=== PATIENT | female | born 1970 ===

== ENCOUNTER 2021-01-05 02:44 | Emergency (ER) | payer MEDICAID ==
[2021-01-05 03:00] VITALS: BP 141/71
[2021-01-05] MEDS ORDERED: ASPIRIN 81 MG TAB CHEW PO ONE (03:21)
--- NOTE | 2021-01-05 03:23 | Event Note ---
ED Screening Note Date of service: 01/05/21 Time: 03: ED Screening Note: 50-year-old female patient with history of BMI > 49, tobacco use, hypertension, and prior AK presents to the emergency department with complaints of left-sided chest pain radiating to the left side of her back with associated shortness of breath and generalized weakness starting today. Patient states current symptoms are less severe than her prior AK 6 months ago. Patient states she "is just not feeling right." General: Awake, appropriately interactive, no acute distress. Neck: Supple. Full range of motion intact. Cardiovascular: Normal peripheral perfusion. Pulmonary: No respiratory distress. Patient is speaking normally without use of accessory muscles. Skin: No apparent rashes or lesions. Neurological: No facial asymmetry. Speech is clear. Follows commands. Patient is alert and oriented. Musculoskeletal: Moves all four extremities spontaneously with normal range of motion. Psych: Cooperative. Appropriate mood and affect. EKG, labs, chest x-ray, aspirin ordered. director informatics requested. I have greeted and performed a focused rapid initial assessment of this patient. A comprehensive ED assessment and evaluation of the patient, analysis of all test results, and completion of the medical decision-making process will be conducted by additional ED providers. This initial assessment/diagnostic orders/clinical plan/treatment(s) is/are subject to change based on patients health status, clinical progression and re-assessment. Further treatment and workup at subsequent clinical provider's discretion. Patient/guardian urged not to elope from the ED as their condition may be serious if not clinically assessed and managed.
[2021-01-05 04:12] LABS: Basophils # (Auto) 0.1 K/mm3 (0.0-0.1); Basophils % (Auto) 0.8 % (0.0-1.8); Eosinophils # (Auto) 0.2 K/mm3 (0.0-0.4); Eosinophils % (Auto) 1.8 % (0.0-4.3); Hematocrit 42.1 % (30.3-42.9); Hemoglobin 14.6 gm/dl (10.1-14.3); Lymphocytes # (Auto) 2.5 K/mm3 (1.2-5.4); Lymphocytes % (Auto) 21.9 % (13.4-35.0); Mean Corpuscular HGB Conc 35 % (30-34); Mean Corpuscular Volume 86 fl (79-97); Monocytes # (Auto) 0.9 K/mm3 (0.0-0.8); Monocytes % (Auto) 8.1 % (0.0-7.3); Platelet Count 204 K/mm3 (140-440); Red Blood Count 4.88 M/mm3 (3.65-5.03); Red Cell Distribution Width 16.8 % (13.2-15.2)
[2021-01-05 04:27] LABS: INR 0.89 (0.87-1.13)
[2021-01-05 04:28] LABS: Partial Thromboplastin Time 27.7 Sec. (24.2-36.6)
[2021-01-05 04:33] LABS: Alanine Aminotransferase 20 units/L (7-56); Albumin 4.2 g/dL (3.9-5); Blood Urea Nitrogen 8 mg/dL (7-17); Calcium 9.1 mg/dL (8.4-10.2); Hemolysis Index 14
[2021-01-05 05:01] LABS: BUN/Creatinine Ratio 13
--- NOTE | 2021-01-05 05:40 | XRay Report ---
CHEST 2 VIEWS INDICATION / CLINICAL INFORMATION: chest pain. COMPARISON: None available. FINDINGS: SUPPORT DEVICES: None. HEART / MEDIASTINUM: No significant abnormality. LUNGS / PLEURA: No significant pulmonary or pleural abnormality. No pneumothorax. ADDITIONAL FINDINGS: No significant additional findings. IMPRESSION: 1. No acute findings. Signer Name: Trey Patel MD Signed: 01/05/2021 5:36 AM Workstation Name: [id number]
--- NOTE | 2021-01-07 10:52 | Electrocardiograph Report ---
[facility] Test Date: 2021-01-05 Test Time: 02:49:33 Pat Name: CORRINA MAGUIRE Department: Room: Gender: F Sem Manager: KYLER : 1970 Requested By: AYDEN BLAS Order Number: [id number] Reading MD: Matthew Retneria Measurements Intervals [place] Rate: 61 P: 45 TN: 144 QRS: 55 QRSD: 99 T: 35 QT: 423 QTc: 425 Interpretive Statements Sinus rhythm No previous ECG available for comparison Electronically Signed On 01-07-2021 10:51:58 EDT by Matthew Renteria
== END 2021-01-05 06:10 | disposition left against medical advice (07) ==
LOC: ED 02:44
DX: R07.9 Chest pain, unspecified (principal); Z53.21 Procedure and treatment not carried out due to patient leaving prior to being seen by health care provider
CPT/HCPCS: 36415; 71046; 80053; 83735; 84484; 84703; 85025; 85610; 85730; 93005

== ENCOUNTER 2021-11-07 10:02 | Emergency (ER) | payer MEDICAID ==
--- NOTE | 2021-11-07 11:23 | XRay Report ---
CHEST 2 VIEWS INDICATION / CLINICAL INFORMATION: Chest Pain. COMPARISON: None available. FINDINGS: SUPPORT DEVICES: None. HEART / MEDIASTINUM: No significant abnormality. LUNGS / PLEURA: No significant pulmonary or pleural abnormality. No pneumothorax. ADDITIONAL FINDINGS: No significant additional findings. IMPRESSION: 1. No acute findings. Signer Name: Brian Pichardo Jr, MD Signed: 11/07/2021 11:18 AM Workstation Name: [id number]
[2021-11-07 12:02] LABS: Basophils # (Auto) 0.1 K/mm3 (0.0-0.1); Basophils % (Auto) 0.7 % (0.0-1.8); Eosinophils # (Auto) 0.2 K/mm3 (0.0-0.4); Eosinophils % (Auto) 1.8 % (0.0-4.3); Hematocrit 45.6 % (30.3-42.9); Hemoglobin 15.5 gm/dl (10.1-14.3); Mean Corpuscular HGB Conc 34 % (30-34); Mean Corpuscular Volume 93 fl (79-97); Monocytes # (Auto) 0.8 K/mm3 (0.0-0.8); Platelet Count 195 K/mm3 (140-440); Red Blood Count 4.89 M/mm3 (3.65-5.03); Red Cell Distribution Width 14.1 % (13.2-15.2)
[2021-11-07 12:23] LABS: Alanine Aminotransferase 21 units/L (7-56); Albumin 3.9 g/dL (3.9-5); Blood Urea Nitrogen 7 mg/dL (7-17); Calcium 8.8 mg/dL (8.4-10.2); Hemolysis Index 15
[2021-11-07 12:28] LABS: INR 0.91 (0.87-1.13)
[2021-11-07 12:29] LABS: Partial Thromboplastin Time 29.1 Sec. (24.2-36.6)
[2021-11-07 12:31] LABS: BUN/Creatinine Ratio 12
[2021-11-07] MEDS ORDERED: ASPIRIN EC 325 MG TAB PO ONE (14:07)
[2021-11-07] MEDS ORDERED: amLODIPine 5 MG TAB PO ONE (14:07)
--- NOTE | 2021-11-07 14:13 | Emergency Department Report ---
ED Chest Pain HPI - General Chief Complaint: Chest Pain Stated Complaint: CHEST PAIN Time Seen by Provider: 11/07/21 13:36 Source: patient Mode of arrival: Ambulatory Limitations: No Limitations - History of Present Illness Initial Comments: This is a 51-year-old With a history of bronchitis and hypertension who presents to the emergency department with chest pressure across her entire chest since 3 AM this morning. This chest pain was followed by left-sided headache which radiates down her left upper back. Patient denies palpitations, shortness of breath, cough, fever. Patient does report bilateral upper and lower extremity edema. Patient denies previous similar chest pain. Patient also reports that noncompliant with her antihypertensives which include metoprolol and Norvasc. Denies any known aggravating or alleviating factors. Severity scale (0 -10): 4 - Related Data Previous Rx's Medication Instructions Recorded Last Taken Type Amoxicillin [Amoxicillin TAB] 875 mg PO BID 7 Days 11/07/21 Unknown Rx HYDROcodone/Acetaminop 7.5-325 7.5 mg PO Q6HR PRN #12 11/07/21 Unknown Rx [[place]] Metoprolol [Lopressor TAB] 25 mg PO BID #30 tablet 11/07/21 Unknown Rx amLODIPine 5 mg PO DAILY #30 tab 11/07/21 Unknown Rx Allergies Allergy/AdvReac Type Severity Reaction Status Date / Time erythromycin base AdvReac Hives Verified 11/07/21 10:24 Heart Score - HEART Score History: Moderately suspicious EKG: Non-specific Age: 45-65 Risk factors: 1-2 risk factors Troponin: < normal limit HEART Score: 4 - EKG Read Time Time EKG Completed: 10:22 EKG Read Time: 10:22 ED Review of Systems ROS: Stated complaint: CHEST PAIN Other details as noted in HPI Comment: All other systems reviewed and negative Constitutional: denies: chills, fever Eyes: denies: eye pain, eye discharge, vision change ENT: denies: ear pain, throat pain Respiratory: no symptoms reported. denies: cough, shortness of breath, wheezing Cardiovascular: chest pain, edema. denies: palpitations Endocrine: no symptoms reported Gastrointestinal: denies: abdominal pain, nausea, diarrhea Genitourinary: denies: urgency, dysuria, discharge Musculoskeletal: back pain. denies: joint swelling, arthralgia Skin: denies: rash, lesions Neurological: headache. denies: weakness, paresthesias Psychiatric: anxiety. denies: depression Hematological/Lymphatic: denies: easy bleeding, easy bruising ED Past Medical Hx - Past Medical History Previous Medical History?: Yes Hx Hypertension: Yes Additional medical history: Morbidly obese - Surgical History Hx Coronary Stent: No Additional Surgical History: Tubal ligation, - Social History Smoking Status: Current Every Day Smoker Substance Use Type: Marijuana - Medications Home Medications: Home Medications Medication Instructions Recorded Confirmed Last Taken Type Amoxicillin [Amoxicillin TAB] 875 mg PO BID 7 Days 11/07/21 Unknown Rx HYDROcodone/Acetaminop 7.5-325 7.5 mg PO Q6HR PRN #12 11/07/21 Unknown Rx [[place]] Metoprolol [Lopressor TAB] 25 mg PO BID #30 tablet 11/07/21 Unknown Rx amLODIPine 5 mg PO DAILY #30 tab 11/07/21 Unknown Rx ED Physical Exam - General Limitations: No Limitations General appearance: alert, in no apparent distress, obese - Head Head exam: Present: atraumatic, normocephalic - Eye Eye exam: Present: normal appearance, EOMI - ENT ENT exam: Present: mucous membranes moist - Neck Neck exam: Present: normal inspection - Respiratory Respiratory exam: Present: normal lung sounds bilaterally. Absent: respiratory distress, wheezes - Cardiovascular Cardiovascular Exam: Present: regular rate, normal rhythm. Absent: systolic murmur, diastolic murmur, rubs, gallop - GI/Abdominal GI/Abdominal exam: Present: soft, normal bowel sounds. Absent: distended, bruit, pulsatile mass - Extremities Exam Extremities exam: Present: normal inspection, pedal edema (1+ bilateral lower extremity) - Back Exam Back exam: Present: normal inspection - Neurological Exam Neurological exam: Present: alert, oriented X3 - Psychiatric Psychiatric exam: Present: normal affect, normal mood - Skin Skin exam: Present: warm, dry, intact, normal color. Absent: rash ED Course Vital Signs 11/07/21 11/07/21 11/07/21 10:21 13:14 13:15 Temperature 98.9 F Pulse Rate 74 59 L Respiratory 18 9 L Rate Blood Pressure 144/85 144/85 Blood Pressure 199/86 [Left] O2 Sat by Pulse 99 100 Oximetry 11/07/21 11/07/21 11/07/21 13:24 13:31 13:57 Temperature Pulse Rate 62 Respiratory 12 Rate Blood Pressure 144/85 144/85 Blood Pressure [Left] O2 Sat by Pulse 98 99 100 Oximetry 11/07/21 11/07/21 11/07/21 14:01 14:31 15:01 Temperature Pulse Rate 58 L 69 66 Respiratory 13 11 L 20 Rate Blood Pressure 156/89 156/89 168/90 Blood Pressure [Left] O2 Sat by Pulse 100 98 99 Oximetry 11/07/21 11/07/21 11/07/21 15:15 15:47 16:01 Temperature Pulse Rate 69 72 60 Respiratory 24 12 13 Rate Blood Pressure 156/89 156/89 156/89 Blood Pressure [Left] O2 Sat by Pulse 96 100 97 Oximetry 11/07/21 11/07/21 16:15 16:31 Temperature Pulse Rate 72 69 Respiratory 12 10 L Rate Blood Pressure 168/90 168/90 Blood Pressure [Left] O2 Sat by Pulse 98 99 Oximetry - Reevaluation(s) Reevaluation #1: 11/07/21 18:00 Patient is still complaining of headache and chest pain, will repeat troponin and give another dose of pain medicine. Patient is no longer vomiting, so if her troponin comes back normal, patient will be discharged home to follow-up with cardiology. ED Medical Decision Making - Lab Data Result diagrams: 11/07/21 11:35 11/07/21 11:35 - Differential Diagnosis ACS, pulmonary embolism, anxiety, malingering Critical care attestation.: If time is entered above; I have spent that time in minutes in the direct care of this critically ill patient, excluding procedure time. ED Disposition Clinical Impression: Sinusitis Chest pain Qualifiers: Chest pain type: other chest pain Qualified Code(s): R07.89 - Other chest pain; R07.8 - Other chest pain Headache Qualifiers: Headache type: unspecified Headache chronicity pattern: acute headache Intractability: not intractable Qualified Code(s): R51.9 - Headache, unspecified Disposition: 01 HOME / SELF CARE / HOMELESS Is pt being admited?: No Condition: Stable Instructions: Nonspecific Chest Pain, Adult, Sinusitis, Adult, [id number], Form - Headache Record Prescriptions: amLODIPine 5 mg PO DAILY #30 tab Amoxicillin [Amoxicillin TAB] 875 mg PO BID 7 Days Metoprolol [Lopressor TAB] 25 mg PO BID #30 tablet HYDROcodone/Acetaminop 7.5-325 [[place]] 7.5 mg PO Q6HR PRN #12 PRN Reason: Headache Referrals: PRIMARY CARE, [Primary Care Provider] - 3-5 Days Time of Disposition: 19:45
[2021-11-07] MEDS ORDERED: diazePAM 5 MG TAB PO ONE (14:34)
[2021-11-07] MEDS ORDERED: ONDANSETRON 4 MG/2 ML INJ IV ONE (15:11)
[2021-11-07] MEDS ORDERED: MORPHINE 2 MG/1 ML INJ IM ONE (15:12)
--- NOTE | 2021-11-07 16:04 | Cat Scan Report ---
CT head/brain wo con INDICATION: headache with hypertension r/o bleed. TECHNIQUE: Routine CT head. All CT scans at this location are performed using CT dose reduction for A EVA by means of automated exposure control. COMPARISON: None. FINDINGS: Intracranial: [place]-white matter differentiation is maintained. No intracranial hemorrhage. No extra a xial collection. No hydrocephalus. No herniation. Sinuses: Paranasal sinuses are essentially clear. Large and bilateral mastoid effusions. Orbits: Globes are intact. Calvarium: No acute fracture. IMPRESSION: 1. No acute intracranial abnormality. 2. Large mild bilateral mastoid effusions. Signer Name: Rodriguez Grimes MD Signed: 11/07/2021 3:59 PM Workstation Name: [email or web address]
--- NOTE | 2021-11-07 16:42 | Cat Scan Report ---
CTA CHEST WITH CONTRAST INDICATION / CLINICAL INFORMATION: chest pain r/o pe 100ML OF [id number]. TECHNIQUE: Axial CT images were obtained through the chest after injection of IV contrast. 3 plane FL P and/or 3D reconstructions were produced. All CT scans at this location are performed using CT dose reduction for ALARA by means of automated exposure control. COMPARISON: Radiograph earlier on same date FINDINGS: PULMONARY EMBOLUS: None. THORACIC AORTA: No significant abnormality. HEART: Mildly enlarged. CORONARY ARTERY CALCIFICATION: Present -- Moderate. MEDIASTINUM / TIA: No significant abnormality. PLEURA: No pleural effusion. No pneumothorax. LUNGS: No acute air space or interstitial disease. Mosaic attenuation of the lungs which can be seen in the setting of lower airways disease. ADDITIONAL FINDINGS: None. UPPER ABDOMEN: Diffuse hypodensity liver likely representing hepatic steatosis. SKELETAL STRUCTURES: No significant osseous abnormality. IMPRESSION: 1. No CT evidence for pulmonary embolism. 2. No acute pulmonary or pleural findings. 3. Mosaic attenuation of the lungs which can be seen in lower airways disease. 4. Moderate coronary artery calcification. 5. Possible hepatic steatosis. Signer Name: Nino Boothe MD Signed: 11/07/2021 4:38 PM Workstation Name: [id number]
[2021-11-07] MEDS ORDERED: MORPHINE 2 MG/1 ML INJ IV ONE (17:59)
[2021-11-07 20:19] VITALS: BP 127/55
--- NOTE | 2021-11-08 08:55 | Electrocardiograph Report ---
[facility] Test Date: 2021-11-07 Test Time: 10:22:43 Pat Name: CORRINA MAGUIRE Department: Room: Gender: F Paper Sorter: RONN : 1970 Requested By: ED DOC Order Number: [id number] Reading MD: Matthew Renteria Measurements Intervals [place] Rate: 67 P: -4 MT: 135 QRS: 38 QRSD: 86 T: 31 QT: 420 QTc: 445 Interpretive Statements Sinus rhythm nonspecific st-t Compared to ECG 01/05/2021 02:49:33 Electronically Signed On 11-08-2021 8:55:19 EDT by Matthew Renteria
== END 2021-11-07 20:00 | disposition home or self-care (01) ==
LOC: ED 10:02
DX: R07.9 Chest pain, unspecified (principal); R51.9 Headache, unspecified; J32.9 Chronic sinusitis, unspecified; I10 Essential (primary) hypertension; F17.200 Nicotine dependence, unspecified, uncomplicated; Z91.09 Other allergy status, other than to drugs and biological substances; Z79.899 Other long term (current) drug therapy
CPT/HCPCS: 36415; 70450; 71046; 71275; 80053; 83880; 84484; 85025; 85610; 85730; 93005; 96372; 96374; 96375; 99284; J2270; J2405; Q9967